=== PATIENT | female | born 1970 | race Caucasian/White ===

== ENCOUNTER 2016-10-09 10:14 | Inpatient (IN) | payer BC ==
[~2016-10-09] VITALS: Ht 157.5 cm; Wt 89.8 kg
[~2016-10-09 10:14] MED LIST: AMBIEN10 MG; AMBIEN10 MG PO; AMLODIPINE BESYL5 MG PO; Ambien PO; CITALOPRAM HBR40 MG PO; LISINOPRIL40 MG PO; LOPRESSOR25 MG PO; METOPROLOL TART50 MG PO; NEXIUM40 MG PO; Norvasc PO; Toprol XL PO; ZEGERID40 MG; Zestril,Prinivil PO; celeXA PO
[2016-10-09 10:52] LABS: HEMATOCRIT 31.7 % (36.0-46.0); MCV 75.8 FL (83-99)
[2016-10-09 15:37] LABS: CHLORIDE 105 mEq/L (99-109); POTASSIUM 3.6 mEq/L (3.7-5.4); SODIUM 139 mEq/L (136-147)
[2016-10-09 15:39] LABS: GLUCOSE 89 mg/dL (70-99)
[2016-10-09 15:41] LABS: ANION GAP 11 MEQ/L (2-14); TOTAL BILIRUBIN 0.6 mg/dL (0.0-1.0)
[2016-10-09 15:43] LABS: ALKALINE PHOSPHATASE 76 IU/L (3-129); GFR ESTIMATE (CALCULATED) > 59 mL/min/
[2016-10-09 15:44] LABS: UREA NITROGEN (BUN) 11 mg/dL (9-23)
[2016-10-09 15:47] LABS: LIPASE 6 U/L (1.0-51.0)
[2016-10-09] MEDS ORDERED: TYLENOL EXTRA500 MG PO (16:11)
[2016-10-09 16:14] LABS: ADD MIUA? NO; BILIRUBIN NEGATIVE; BLOOD NEGATIVE; COLOR YELLOW ((YELLOW)); GLUCOSE (STRIP) NEGATIVE; KETONES NEGATIVE; LEUKOCYTES NEGATIVE; NITRITE NEGATIVE; PROTEIN (STRIP) NEGATIVE; SPECIFIC GRAVITY 1.032 (1.000-1.030); UCUL ADDED? NO; UROBILINOGEN 0.2 MG/DL (0.2-1.0)
[2016-10-09 17:49] LABS: INFLUENZA A VIRAL ANTIGEN NEGATIVE; INFLUENZA B VIRAL ANTIGEN NEGATIVE
[2016-10-10 00:05] VITALS: BP 119/63
[2016-10-10 06:58] LABS: HEMATOCRIT 27.2 % (36.0-46.0); MCH 20.8 PG (29.0-34.0); MCHC 27.6 G/DL (30.0-36.0); MCV 75.3 FL (83-99); MEAN PLAT.VOLUME 10.1 uM^3 (9.5-12.4); PLATELET COUNT 372 K/uL (156-360); RBC DIS.WIDTH-CV 19.9 % (11.8-14.6); RED BLOOD COUNT 3.61 M/uL (3.80-5.20)
[2016-10-10 07:27] LABS: WHITE BLOOD COUNT 4.9 K/uL (4.1-10.2)
[2016-10-10 07:31] LABS: ALKALINE PHOSPHATASE 55 IU/L (3-129); ANION GAP 7 MEQ/L (2-14); CHLORIDE 105 MEQ/L (99-109); DIRECT BILIRUBIN 0.1 mg/dL (0.0-0.3); GFR ESTIMATE (CALCULATED) > 59 mL/min/; GLUCOSE 83 mg/dL (70-99); POTASSIUM 3.5 MEQ/L (3.7-5.4); SAMPLE HEMOLYSIS CHECK 0; SAMPLE ICTERIC CHECK 0; SAMPLE LIPEMIA CHECK 0; SODIUM 139 MEQ/L (136-147); TOTAL BILIRUBIN 0.4 MG/DL (0.0-1.0); UREA NITROGEN (BUN) 8 mg/dL (9-23)
[2016-10-10 07:35] LABS: BASOPHIL COUNT 0.1 K/uL (0-0.1); EOSINOPHIL (%) 3.7 % (0-5); EOSINOPHIL COUNT 0.2 K/uL (0-0.3); IMMATURE GRANULOCYTE (%) 0.2 % (0.0-0.7); LYMPHOCYTE COUNT 1.9 K/uL (1.0-2.8); MONOCYTE (%) 9.4 % (3-12); MONOCYTE COUNT 0.5 K/uL (0-0.8); NEUTROPHIL (%) 47.7 % (45-76); NEUTROPHIL COUNT 2.3 K/uL (1.8-6.4)
[2016-10-10 08:00] VITALS: BP 133/76
[2016-10-10 13:52] LABS: HEMATOCRIT 31.8 % (36.0-46.0); MCV 76.1 FL (83-99)
[2016-10-10 17:35] VITALS: BP 100/53
[2016-10-10 20:59] VITALS: BP 110/80
[2016-10-10 22:35] VITALS: BP 91/58
[2016-10-11 05:13] VITALS: BP 121/58
[2016-10-11 07:10] LABS: HEMATOCRIT 27.8 % (36.0-46.0); MCH 21.2 PG (29.0-34.0); MCHC 27.7 G/DL (30.0-36.0); MCV 76.6 FL (83-99); MEAN PLAT.VOLUME 10.7 uM^3 (9.5-12.4); PLATELET COUNT 352 K/uL (156-360); RBC DIS.WIDTH-SD 56.2 % (39-53); RED BLOOD COUNT 3.63 M/uL (3.80-5.20); WHITE BLOOD COUNT 5.7 K/uL (4.1-10.2)
[2016-10-11 07:23] LABS: EOSINOPHIL COUNT 0.2 K/uL (0-0.3); IMMATURE GRANULOCYTE (%) 0.2 % (0.0-0.7); LYMPHOCYTE COUNT 1.2 K/uL (1.0-2.8); MONOCYTE (%) 7.4 % (3-12); MONOCYTE COUNT 0.4 K/uL (0-0.8); NEUTROPHIL (%) 67.2 % (45-76); NEUTROPHIL COUNT 3.8 K/uL (1.8-6.4)
[2016-10-11 07:39] LABS: ALKALINE PHOSPHATASE 58 IU/L (3-129); ANION GAP 8 MEQ/L (2-14); CHLORIDE 104 MEQ/L (99-109); GFR ESTIMATE (CALCULATED) > 59 mL/min/; GLUCOSE 84 mg/dL (70-99); POTASSIUM 3.8 MEQ/L (3.7-5.4); SAMPLE HEMOLYSIS CHECK 0; SAMPLE ICTERIC CHECK 0; SAMPLE LIPEMIA CHECK 0; SODIUM 141 MEQ/L (136-147); UREA NITROGEN (BUN) 9 mg/dL (9-23)
[2016-10-11 07:41] LABS: TOTAL BILIRUBIN 0.3 MG/DL (0.0-1.0)
[2016-10-11 08:03] VITALS: BP 121/59
[2016-10-11 11:28] VITALS: BP 90/75
[2016-10-11 14:09] LABS: HEMATOCRIT 29.4 % (36.0-46.0); MCV 77.2 FL (83-99)
[2016-10-11 14:27] VITALS: BP 125/54
[2016-10-11 15:50] VITALS: BP 120/60
[2016-10-11 22:54] VITALS: BP 107/65
[2016-10-12 06:21] LABS: HEMATOCRIT 27.3 % (36.0-46.0); MCH 21.3 PG (29.0-34.0); MCHC 27.8 G/DL (30.0-36.0); MCV 76.7 FL (83-99); MEAN PLAT.VOLUME 10.2 uM^3 (9.5-12.4); PLATELET COUNT 328 K/uL (156-360); RBC DIS.WIDTH-CV 20.1 % (11.8-14.6); RBC DIS.WIDTH-SD 55.6 % (39-53); RED BLOOD COUNT 3.56 M/uL (3.80-5.20); WHITE BLOOD COUNT 6.2 K/uL (4.1-10.2)
[2016-10-12 06:44] LABS: ALKALINE PHOSPHATASE 58 IU/L (3-129); ANION GAP 7 MEQ/L (2-14); CHLORIDE 104 MEQ/L (99-109); GFR ESTIMATE (CALCULATED) > 59 mL/min/; GLUCOSE 85 mg/dL (70-99); POTASSIUM 4.2 MEQ/L (3.7-5.4); SAMPLE HEMOLYSIS CHECK 0; SAMPLE ICTERIC CHECK 0; SAMPLE LIPEMIA CHECK 0; SODIUM 140 MEQ/L (136-147); TOTAL BILIRUBIN 0.3 MG/DL (0.0-1.0); UREA NITROGEN (BUN) 11 mg/dL (9-23)
[2016-10-12 06:53] LABS: EOSINOPHIL (%) 3.6 % (0-5); EOSINOPHIL COUNT 0.2 K/uL (0-0.3); IMMATURE GRANULOCYTE (%) 0.2 % (0.0-0.7); LYMPHOCYTE COUNT 1.4 K/uL (1.0-2.8); MONOCYTE (%) 7.5 % (3-12); MONOCYTE COUNT 0.5 K/uL (0-0.8); NEUTROPHIL (%) 64.6 % (45-76)
[2016-10-12 08:23] VITALS: BP 119/58
[2016-10-12 16:36] VITALS: BP 121/59
[2016-10-12 21:15] VITALS: BP 111/60
[2016-10-12 22:16] LABS: INTERNAL CONTROL VALID? YES
[2016-10-12 23:34] VITALS: BP 116/58
[2016-10-13 05:01] LABS: CHLORIDE 107 mEq/L (99-109); POTASSIUM 3.9 mEq/L (3.7-5.4); SODIUM 140 mEq/L (136-147)
[2016-10-13 05:05] LABS: ANION GAP 8 MEQ/L (2-14)
[2016-10-13 05:07] LABS: ALKALINE PHOSPHATASE 61 IU/L (3-129); GFR ESTIMATE (CALCULATED) > 59 mL/min/
[2016-10-13 05:08] LABS: UREA NITROGEN (BUN) 10 mg/dL (9-23)
[2016-10-13 05:14] LABS: GLUCOSE 112 mg/dL (70-99); TOTAL BILIRUBIN 0.3 mg/dL (0.0-1.0)
[2016-10-13 07:52] VITALS: BP 108/52
[2016-10-13 11:05] LABS: HEMATOCRIT 28.1 % (36.0-46.0); MCH 21.8 PG (29.0-34.0); MCHC 28.1 G/DL (30.0-36.0); MCV 77.4 FL (83-99); MEAN PLAT.VOLUME 10.4 uM^3 (9.5-12.4); PLATELET COUNT 343 K/uL (156-360); RBC DIS.WIDTH-CV 20.5 % (11.8-14.6); RBC DIS.WIDTH-SD 56.9 % (39-53); RED BLOOD COUNT 3.63 M/uL (3.80-5.20); WHITE BLOOD COUNT 5.7 K/uL (4.1-10.2)
[2016-10-13 11:08] LABS: BASOPHIL COUNT 0.1 K/uL (0-0.1); EOSINOPHIL (%) 4.9 % (0-5); EOSINOPHIL COUNT 0.3 K/uL (0-0.3); IMMATURE GRANULOCYTE (%) 0.4 % (0.0-0.7); LYMPHOCYTE COUNT 1.3 K/uL (1.0-2.8); MONOCYTE (%) 9.3 % (3-12); MONOCYTE COUNT 0.5 K/uL (0-0.8); NEUTROPHIL (%) 62.4 % (45-76); NEUTROPHIL COUNT 3.6 K/uL (1.8-6.4)
[2016-10-13 15:17] VITALS: BP 116/64
[2016-10-13 20:22] VITALS: BP 117/79
[2016-10-13 23:03] VITALS: BP 124/69
[2016-10-13 23:20] VITALS: BP 119/64
[2016-10-13 23:36] LABS: HAPTOGLOBIN+ 132 mg/dL (43-212)
[2016-10-14] VITALS (8 sets, daily range): BP systolic 108–140; BP diastolic 53–78
[2016-10-14 06:38] LABS: MCH 23.3 PG (29.0-34.0); MCHC 29.1 G/DL (30.0-36.0); MCV 80.2 FL (83-99); MEAN PLAT.VOLUME 10.5 uM^3 (9.5-12.4); PLATELET COUNT 304 K/uL (156-360); RBC DIS.WIDTH-CV 20.6 % (11.8-14.6); RBC DIS.WIDTH-SD 59.9 % (39-53); RED BLOOD COUNT 3.99 M/uL (3.80-5.20); WHITE BLOOD COUNT 4.7 K/uL (4.1-10.2)
[2016-10-14 06:53] LABS: BASOPHIL COUNT 0.1 K/uL (0-0.1); EOSINOPHIL (%) 4.9 % (0-5); EOSINOPHIL COUNT 0.2 K/uL (0-0.3); LYMPHOCYTE COUNT 1.5 K/uL (1.0-2.8); MONOCYTE (%) 9.7 % (3-12); MONOCYTE COUNT 0.5 K/uL (0-0.8); NEUTROPHIL (%) 51.7 % (45-76); NEUTROPHIL COUNT 2.4 K/uL (1.8-6.4)
[2016-10-14 07:02] LABS: ANION GAP 4 MEQ/L (2-14); CHLORIDE 105 MEQ/L (99-109); GFR ESTIMATE (CALCULATED) > 59 mL/min/; GLUCOSE 85 mg/dL (70-99); POTASSIUM 4.1 MEQ/L (3.7-5.4); SAMPLE HEMOLYSIS CHECK 0; SAMPLE ICTERIC CHECK 0; SAMPLE LIPEMIA CHECK 0; SODIUM 138 MEQ/L (136-147); UREA NITROGEN (BUN) 11 mg/dL (9-23)
[2016-10-14] MEDS ORDERED: AMITRIPTYLINE H10 MG PO (07:15)
[2016-10-14] MEDS ORDERED: ENDOCET 5-3251 EACH PO (07:15)
[2016-10-14 13:51] LABS: INTERNAL CONTROL VALID? YES
[2016-10-16 20:53] LABS: Neutrophil Cytoplasmic Aby Negative (Negative)
== END 2016-10-14 09:55 | disposition home or self-care (01) | DRG 195 ==
LOC: EME 10:14 → AMB 10:14 → EDSTATUS 10:30 → EDOF 15:53 → 5EAST 15:53
PROVIDERS: Emergency Medicine; Internal Medicine Gastroenterology; Internal Medicine Pulmonary Disease; Nurse Practitioner Adult Health; Pediatrics
PROC: 30233N1 Transfusion of Nonautologous Red Blood Cells into Peripheral Vein, Percutaneous Approach (ICD-10-PCS; principal; 2016-10-13)
DX: J18.1 Lobar pneumonia, unspecified organism (principal); D50.9 Iron deficiency anemia, unspecified; R51 Headache; R10.11 Right upper quadrant pain; R04.0 Epistaxis; D73.4 Cyst of spleen; I10 Essential (primary) hypertension; K21.9 Gastro-esophageal reflux disease without esophagitis; K44.9 Diaphragmatic hernia without obstruction or gangrene; F41.9 Anxiety disorder, unspecified; F32.9 Major depressive disorder, single episode, unspecified; G47.00 Insomnia, unspecified; R09.02 Hypoxemia; E53.8 Deficiency of other specified B group vitamins; E66.9 Obesity, unspecified; Z68.37 Body mass index [BMI] 37.0-37.9, adult
CPT/HCPCS: 70450; 71020; 80048; 80053; 80076; 81003; 82272; 83010 90; 83516 90; 83605; 83690; 85014; 85018; 85025; 86021 90; 86038; 86850; 86900; 86901; 86920; 87040; 87502; 94760; 99202; 99281; 99285; C9113; J0456; J0696; J7050; P9016

== ENCOUNTER 2016-11-08 17:28 | Emergency (ER) | payer BC ==
[~2016-11-08] VITALS: Ht 157.5 cm; Wt 91.5 kg
[~2016-11-08 17:28] MED LIST changes: +AMITRIPTYLINE H10 MG PO; +ENDOCET 5-3251 EACH PO; +TYLENOL EXTRA500 MG PO
[2016-11-08 18:55] LABS: EOSINOPHIL (%) 4.8 % (0-5); EOSINOPHIL COUNT 0.3 K/uL (0-0.3); HEMATOCRIT 34.1 % (36.0-46.0); IMMATURE GRANULOCYTE (%) 0.6 % (0.0-0.7); IMMATURE GRANULOCYTE COUNT 0.4 K/uL; LYMPHOCYTE COUNT 2.1 K/uL (1.0-2.8); MCH 24.8 PG (29.0-34.0); MCHC 29.9 G/DL (30.0-36.0); MEAN PLAT.VOLUME 10.7 uM^3 (9.5-12.4); MONOCYTE (%) 5.7 % (3-12); MONOCYTE COUNT 0.4 K/uL (0-0.8); NEUTROPHIL COUNT 3.7 K/uL (1.8-6.4); RBC DIS.WIDTH-CV 20.8 % (11.8-14.6); RBC DIS.WIDTH-SD 62.5 % (39-53); RED BLOOD COUNT 4.11 M/uL (3.80-5.20); WHITE BLOOD COUNT 6.5 K/uL (4.1-10.2)
[2016-11-08 19:03] LABS: CHLORIDE 107 mEq/L (99-109); SODIUM 140 mEq/L (136-147)
[2016-11-08 19:04] LABS: GLUCOSE 103 mg/dL (70-99)
[2016-11-08 19:06] LABS: ANION GAP 9 MEQ/L (2-14)
[2016-11-08 19:08] LABS: GFR ESTIMATE (CALCULATED) 51 mL/min/
[2016-11-08 19:09] LABS: UREA NITROGEN (BUN) 18 mg/dL (9-23)
[2016-11-08 19:19] LABS: PLATELET COUNT 262 K/uL (156-360)
[2016-11-08] MEDS ORDERED: LEVAQUIN500 MG PO (20:51)
[2016-11-08 21:05] VITALS: BP 117/80
[2016-11-13] MEDS ORDERED: IMITREX50 MG PO (13:49)
== END 2016-11-08 21:06 | disposition home or self-care (01) ==
LOC: EME 17:28
PROVIDERS: Emergency Medicine
DX: J18.9 Pneumonia, unspecified organism (principal)
CPT/HCPCS: 80048; 85025; 86850; 86900; 86901; 87040; 99281; 99285; J7040

== ENCOUNTER → 2016-12-02 | Outpatient (CLI) | payer BC ==
[~2016-12-02] VITALS: Ht 157.5 cm; Wt 88.5 kg
[~2016-12-02] MED LIST changes: +IMITREX50 MG PO; +LEVAQUIN500 MG PO; +VERAPAMIL HCL180 MG PO
[2016-12-02 09:36] LABS: BASOPHIL COUNT 0.1 K/uL (0-0.1); EOSINOPHIL (%) 4.5 % (0-5); EOSINOPHIL COUNT 0.2 K/uL (0-0.3); HEMATOCRIT 37.1 % (36.0-46.0); IMMATURE GRANULOCYTE (%) 0.2 % (0.0-0.7); LYMPHOCYTE COUNT 2.3 K/uL (1.0-2.8); MCH 25.1 PG (29.0-34.0); MCHC 29.4 G/DL (30.0-36.0); MCV 85.3 FL (83-99); MONOCYTE (%) 5.9 % (3-12); MONOCYTE COUNT 0.3 K/uL (0-0.8); NEUTROPHIL (%) 41.7 % (45-76); RBC DIS.WIDTH-CV 19.4 % (11.8-14.6); RBC DIS.WIDTH-SD 60.7 % (39-53); RED BLOOD COUNT 4.35 M/uL (3.80-5.20); WHITE BLOOD COUNT 4.9 K/uL (4.1-10.2)
[2016-12-02 09:50] LABS: INTER. NORMALIZED RATIO 1.1; PROTHROMBIN TIME 11.3 (9.2-11.2); PTT 28.4 (25-32)
[2016-12-02 10:12] LABS: PLATELET COUNT 397 K/uL (156-360)
[2016-12-02 12:11] LABS: ABS NEUTROPHIL COUNT 2.2; ANISOCYTOSIS 2+; ATYPICAL LYMPHOCYTE 8.8 %; BASOPHILS 0.9 %; EOSINOPHIL ABS CT 0.2; EOSINOPHILS 4.4 % (0-5.0); HYPOCHROMASIA 2+; LYMPHOCYTES 33.3 % (15.0-45.0); MACROCYTES 1+; MICROCYTOSIS 1+; PLAT.SUFFICIENCY INCREASED; SEG.NEUTROPHILS 45.6 % (46.0-76.0); SPHEROCYTES 1+
[2016-12-04 10:44] LABS: Flow Number of Markers 22 (()); Flow Spec Viability 91 % (()); Flow Specimen Type BONE MARROW (())
== END | disposition home or self-care (01) ==
LOC: OPR 08:53 → EDSTATUS 09:00
PROVIDERS: Internal Medicine Hematology & Oncology
PROC: 07DR3ZX Extraction of Iliac Bone Marrow, Percutaneous Approach, Diagnostic (ICD-10-PCS; principal; 2016-12-02)
DX: D50.8 Other iron deficiency anemias (principal); R63.4 Abnormal weight loss; R61 Generalized hyperhidrosis; R50.9 Fever, unspecified; R53.83 Other fatigue; R10.11 Right upper quadrant pain; E78.5 Hyperlipidemia, unspecified; K21.9 Gastro-esophageal reflux disease without esophagitis; I10 Essential (primary) hypertension; E66.9 Obesity, unspecified; Z68.37 Body mass index [BMI] 37.0-37.9, adult; Z83.3 Family history of diabetes mellitus; Z82.49 Family history of ischemic heart disease and other diseases of the circulatory system; Z88.5 Allergy status to narcotic agent; Z88.8 Allergy status to other drugs, medicaments and biological substances
CPT/HCPCS: 77012; 85007; 85025; 85610; 85730; 85999; 88184 90; 88185 90; 88189 90; J3010

== ENCOUNTER 2017-03-07 21:34 | Inpatient (IN) | payer BC ==
[~2017-03-07] VITALS: Ht 160 cm; Wt 95.2 kg
[2017-03-07 21:55] LABS: BASE EXCESS 0.5 mEq/L (-3 to +3); CARBOXY HGB 2.8 % (0-5); COMMENTS - BLOOD GASES C+A+; DEVICE NC; O2 FLOW 6 L/MIN; PCO2 45 mm Hg (35-45); PO2 46 mm Hg (80-100); SITE RB; TOTAL RESP RATE 20 resp/min; pH 7.37 (7.35-7.45)
[2017-03-07 22:12] LABS: HEMATOCRIT 30.1 % (36.0-46.0); MCHC 30.2 G/DL (30.0-36.0); MCV 89.3 FL (83-99); MEAN PLAT.VOLUME 9.7 uM^3 (9.5-12.4); PLATELET COUNT 170 K/uL (156-360); RBC DIS.WIDTH-SD 45.5 % (39-53); RED BLOOD COUNT 3.37 M/uL (3.80-5.20)
[2017-03-07 22:24] LABS: CHLORIDE 103 mEq/L (99-109); POTASSIUM 4.3 mEq/L (3.7-5.4); SODIUM 136 mEq/L (136-147)
[2017-03-07 22:26] LABS: GLUCOSE 116 mg/dL (70-99)
[2017-03-07 22:28] LABS: ANION GAP 8 MEQ/L (2-14); TOTAL BILIRUBIN 0.5 mg/dL (0.0-1.0)
[2017-03-07 22:31] LABS: ALKALINE PHOSPHATASE 77 IU/L (3-129); GFR ESTIMATE (CALCULATED) > 59 mL/min/; UREA NITROGEN (BUN) 12 mg/dL (9-23)
[2017-03-07 22:32] LABS: DIRECT BILIRUBIN 0.2 mg/dL (0.0-0.3)
[2017-03-07 22:37] LABS: TROP-I INTERPRETATION NEGATIVE; TROPONIN-I 0.04 ng/mL (0.0-0.30)
[2017-03-07] MEDS ORDERED: IMITREX50 MG PO (22:42)
[2017-03-07 23:00] LABS: LIPASE < 1 U/L (1.0-51.0)
[2017-03-08 01:50] LABS: HEMATOCRIT 28.9 % (36.0-46.0); MCH 27.2 PG (29.0-34.0); MCHC 30.8 G/DL (30.0-36.0); MCV 88.4 FL (83-99); MEAN PLAT.VOLUME 10.2 uM^3 (9.5-12.4); PLATELET COUNT 177 K/uL (156-360); RBC DIS.WIDTH-CV 14.1 % (11.8-14.6); RBC DIS.WIDTH-SD 45.7 % (39-53); RED BLOOD COUNT 3.27 M/uL (3.80-5.20); WHITE BLOOD COUNT 11.7 K/uL (4.1-10.2)
[2017-03-08 04:21] LABS: EOSINOPHIL (%) 0 % (0-5); HEMATOCRIT 29.8 % (36.0-46.0); IMMATURE GRANULOCYTE COUNT 0.1 K/uL; INSTRUMENT ABS NEUTROPHIL CT 10.3 K/uL; LYMPHOCYTE COUNT 0.4 K/uL (1.0-2.8); MCH 27.3 PG (29.0-34.0); MCHC 30.9 G/DL (30.0-36.0); MCV 88.4 FL (83-99); MEAN PLAT.VOLUME 10.2 uM^3 (9.5-12.4); MONOCYTE (%) 1.2 % (3-12); MONOCYTE COUNT 0.1 K/uL (0-0.8); NEUTROPHIL (%) 94.3 % (45-76); NEUTROPHIL COUNT 10.3 K/uL (1.8-6.4); PLATELET COUNT 174 K/uL (156-360); RBC DIS.WIDTH-CV 14.1 % (11.8-14.6); RBC DIS.WIDTH-SD 45.1 % (39-53); RED BLOOD COUNT 3.37 M/uL (3.80-5.20)
[2017-03-08 04:32] LABS: CHLORIDE 105 mEq/L (99-109); POTASSIUM 4.2 mEq/L (3.7-5.4); SODIUM 137 mEq/L (136-147)
[2017-03-08 04:34] LABS: GLUCOSE 166 mg/dL (70-99)
[2017-03-08 04:36] LABS: ANION GAP 9 MEQ/L (2-14)
[2017-03-08 04:38] LABS: GFR ESTIMATE (CALCULATED) > 59 mL/min/
[2017-03-08 04:39] LABS: UREA NITROGEN (BUN) 10 mg/dL (9-23)
[2017-03-08 04:46] VITALS: BP 111/87
[2017-03-08 05:48] LABS: IMMUNOGLOBULIN A 278 MG/DL (40-350); IMMUNOGLOBULIN G 991 MG/DL (650-1600); IMMUNOGLOBULIN M 152 MG/DL (50-300)
[2017-03-08 06:03] LABS: TROP-I INTERPRETATION NEGATIVE; TROPONIN-I 0.05 ng/mL (0.0-0.30)
[2017-03-08 07:10] LABS: ABS NEUTROPHIL COUNT 11.2; BAND NEUTROPHILS 0.9 % (0-8.0); EOSINOPHIL ABS CT 0; INSTRUMENT ABS NEUTROPHIL CT 10.9 K/uL; LYMPHOCYTES 2.6 % (15.0-45.0); PLAT.SUFFICIENCY ADEQUATE; SEG.NEUTROPHILS 94.8 % (46.0-76.0); SMEAR EVALUATION YES
[2017-03-08 08:00] VITALS: BP 117/88
[2017-03-08 11:46] VITALS: BP 132/64
[2017-03-08 12:27] LABS: LYME DISEASE SEROLOGY SCREEN NEGATIVE (NEGATIVE)
[2017-03-08 12:57] LABS: TROP-I INTERPRETATION NEGATIVE; TROPONIN-I 0.04 ng/mL (0.0-0.30)
[2017-03-08 16:34] VITALS: BP 128/82
[2017-03-08 20:17] VITALS: BP 132/89
[2017-03-09 00:44] VITALS: BP 109/56
[2017-03-09 05:27] VITALS: BP 117/57
[2017-03-09 08:30] LABS: HIV INDEX 0.15; HIV-1/2 AB/AG COMBO Nonreactive
[2017-03-09 10:10] LABS: INTERNAL CONTROL VALID? YES
[2017-03-09 11:58] VITALS: BP 119/60
[2017-03-09 16:00] VITALS: BP 129/55
[2017-03-09 20:18] VITALS: BP 117/58
[2017-03-10] VITALS (7 sets, daily range): BP systolic 110–148; BP diastolic 58–88
[2017-03-10 06:05] LABS: HEMATOCRIT 25.2 % (36.0-46.0); MCHC 30.2 G/DL (30.0-36.0); MCV 89.4 FL (83-99); MEAN PLAT.VOLUME 10.5 uM^3 (9.5-12.4); PLATELET COUNT 183 K/uL (156-360); RBC DIS.WIDTH-CV 14.5 % (11.8-14.6); RBC DIS.WIDTH-SD 46.5 % (39-53); RED BLOOD COUNT 2.82 M/uL (3.80-5.20); WHITE BLOOD COUNT 7.6 K/uL (4.1-10.2)
[2017-03-10 06:16] LABS: ANION GAP 7 MEQ/L (2-14); CHLORIDE 107 MEQ/L (99-109); GFR ESTIMATE (CALCULATED) > 59 mL/min/; POTASSIUM 3.5 MEQ/L (3.7-5.4); SAMPLE HEMOLYSIS CHECK 0; SAMPLE ICTERIC CHECK 0; SAMPLE LIPEMIA CHECK 0; SODIUM 140 MEQ/L (136-147); UREA NITROGEN (BUN) 9 mg/dL (9-23)
[2017-03-10 06:40] LABS: GLUCOSE 95 mg/dL (70-99)
[2017-03-10 10:38] LABS: ANTI-NUCLEAR AB SCRN/RFLX(ANA) NONREACTIVE (NONREACTIVE)
[2017-03-10 11:09] LABS: INFLUENZA A VIRAL ANTIGEN NEGATIVE; INFLUENZA B VIRAL ANTIGEN NEGATIVE
[2017-03-10 17:36] LABS: MCV 90.9 FL (83-99)
[2017-03-11 03:47] VITALS: BP 125/70
[2017-03-11 04:52] LABS: DRVVT Mixing Study Interp Not Indicated (()); dRVVT Screen 39 sec (<=45)
[2017-03-11 05:22] LABS: ADD PTT REFLEX? Y; PTT-LA 46 sec (<=40); PTT-LA Reflex Has been added (())
[2017-03-11 09:06] VITALS: BP 128/58
[2017-03-11 11:59] VITALS: BP 136/77
[2017-03-11 15:18] VITALS: BP 134/66
[2017-03-11 17:46] LABS: HGBE Erythrocyte Cnt 3.42 Mill/uL (3.80-5.10); HGBE Hematocrit 30.6 % (35.0-45.0); HGBE Hemoglobin 9.4 g/dL (11.7-15.5); HGBE MCH 27.5 pg (27.0-33.0); HGBE MCV 89.5 FL (80.0-100.0); HGBE RDW 16.2 % (11.0-15.0)
[2017-03-11 19:35] VITALS: BP 134/78
[2017-03-11 21:50] LABS: QGTB-NIL 0.05 IU/mL (()); TB AG-NIL 0.01 IU/mL (())
[2017-03-11 23:39] VITALS: BP 109/56
[2017-03-12 02:16] LABS: INTRINSIC FACTOR BLOCKING ABY+ Negative (Negative)
[2017-03-12 03:23] VITALS: BP 122/71
[2017-03-12 06:03] LABS: EOSINOPHIL (%) 3.7 % (0-5); EOSINOPHIL COUNT 0.3 K/uL (0-0.3); IMMATURE GRANULOCYTE (%) 0.7 % (0.0-0.7); IMMATURE GRANULOCYTE COUNT 0.1 K/uL; INSTRUMENT ABS NEUTROPHIL CT 6.4 K/uL; LYMPHOCYTE COUNT 1.3 K/uL (1.0-2.8); MCH 27.4 PG (29.0-34.0); MCHC 31.1 G/DL (30.0-36.0); MCV 88.1 FL (83-99); MONOCYTE (%) 6.4 % (3-12); MONOCYTE COUNT 0.6 K/uL (0-0.8); NEUTROPHIL (%) 73.9 % (45-76); NEUTROPHIL COUNT 6.4 K/uL (1.8-6.4); RBC DIS.WIDTH-CV 14.8 % (11.8-14.6); RBC DIS.WIDTH-SD 46.2 % (39-53); RED BLOOD COUNT 3.18 M/uL (3.80-5.20); WHITE BLOOD COUNT 8.6 K/uL (4.1-10.2)
[2017-03-12 06:26] LABS: ALKALINE PHOSPHATASE 60 IU/L (3-129); ANION GAP 8 MEQ/L (2-14); CHLORIDE 103 MEQ/L (99-109); GFR ESTIMATE (CALCULATED) > 59 mL/min/; GLUCOSE 90 mg/dL (70-99); POTASSIUM 3.3 MEQ/L (3.7-5.4); SAMPLE HEMOLYSIS CHECK 0; SAMPLE ICTERIC CHECK 0; SAMPLE LIPEMIA CHECK 0; SODIUM 140 MEQ/L (136-147); TOTAL BILIRUBIN 0.5 MG/DL (0.0-1.0); UREA NITROGEN (BUN) 5 mg/dL (9-23)
[2017-03-12 07:19] LABS: MEAN PLAT.VOLUME 11.7 uM^3 (9.5-12.4); PLAT.SUFFICIENCY ADEQUATE; PLATELET COUNT 182 K/uL (156-360)
[2017-03-12 08:20] VITALS: BP 146/92
[2017-03-12 11:33] VITALS: BP 156/71
[2017-03-12 15:22] VITALS: BP 133/80
[2017-03-12 20:40] VITALS: BP 174/86
[2017-03-12 23:42] VITALS: BP 132/60
[2017-03-13 04:06] VITALS: BP 145/65
[2017-03-13 06:22] LABS: EOSINOPHIL (%) 3.8 % (0-5); EOSINOPHIL COUNT 0.3 K/uL (0-0.3); HEMATOCRIT 25.8 % (36.0-46.0); IMMATURE GRANULOCYTE (%) 0.8 % (0.0-0.7); IMMATURE GRANULOCYTE COUNT 0.1 K/uL; INSTRUMENT ABS NEUTROPHIL CT 5.4 K/uL; LYMPHOCYTE COUNT 1.5 K/uL (1.0-2.8); MCH 27.6 PG (29.0-34.0); MCHC 31.4 G/DL (30.0-36.0); MCV 88.1 FL (83-99); MEAN PLAT.VOLUME 10.6 uM^3 (9.5-12.4); MONOCYTE (%) 6.9 % (3-12); MONOCYTE COUNT 0.5 K/uL (0-0.8); NEUTROPHIL (%) 68.8 % (45-76); NEUTROPHIL COUNT 5.4 K/uL (1.8-6.4); RBC DIS.WIDTH-CV 15.2 % (11.8-14.6); RBC DIS.WIDTH-SD 46.9 % (39-53); RED BLOOD COUNT 2.93 M/uL (3.80-5.20); WHITE BLOOD COUNT 7.8 K/uL (4.1-10.2)
[2017-03-13 06:30] LABS: ALKALINE PHOSPHATASE 59 IU/L (3-129); ANION GAP 6 MEQ/L (2-14); CHLORIDE 103 MEQ/L (99-109); GFR ESTIMATE (CALCULATED) > 59 mL/min/; GLUCOSE 87 mg/dL (70-99); POTASSIUM 3.4 MEQ/L (3.7-5.4); SAMPLE HEMOLYSIS CHECK 0; SAMPLE ICTERIC CHECK 0; SAMPLE LIPEMIA CHECK 0; SODIUM 140 MEQ/L (136-147); TOTAL BILIRUBIN 0.4 MG/DL (0.0-1.0); UREA NITROGEN (BUN) 4 mg/dL (9-23)
[2017-03-13 06:35] LABS: PLATELET COUNT 261 K/uL (156-360)
[2017-03-13 07:36] VITALS: BP 142/69
[2017-03-13] MEDS ORDERED: AUGMENTIN875 MG PO (10:11)
[2017-03-13] MEDS ORDERED: ZITHROMAX500 MG PO (10:11)
[2017-03-13 10:57] VITALS: BP 133/83
[2017-03-16 20:33] LABS: Neutrophil Cytoplasmic Aby Negative (Negative)
== END 2017-03-13 13:33 | disposition home or self-care (01) | DRG 166 ==
LOC: EME → EDBD 21:34 → EME 21:34 → 4EAST 03-08 03:23 → EDOF 03-08 03:23 → 4EAST 03-08 04:31
PROVIDERS: Emergency Medicine; Hospitalist; Internal Medicine; Nurse Practitioner Adult Health; Pediatrics
PROC: 0B9D8ZX Drainage of Right Middle Lung Lobe, Via Natural or Artificial Opening Endoscopic, Diagnostic (ICD-10-PCS; principal; 2017-03-08)
PROC: 0B9F8ZX Drainage of Right Lower Lung Lobe, Via Natural or Artificial Opening Endoscopic, Diagnostic (ICD-10-PCS; principal; 2017-03-08)
DX: J18.9 Pneumonia, unspecified organism (principal); K44.9 Diaphragmatic hernia without obstruction or gangrene; K21.9 Gastro-esophageal reflux disease without esophagitis; I10 Essential (primary) hypertension; F32.9 Major depressive disorder, single episode, unspecified; R41.82 Altered mental status, unspecified; D18.1 Lymphangioma, any site; E66.9 Obesity, unspecified; F41.9 Anxiety disorder, unspecified; D50.9 Iron deficiency anemia, unspecified; J96.01 Acute respiratory failure with hypoxia; J98.11 Atelectasis; E87.6 Hypokalemia; D18.00 Hemangioma unspecified site; Z68.37 Body mass index [BMI] 37.0-37.9, adult; Z87.01 Personal history of pneumonia (recurrent)
CPT/HCPCS: 36600; 71010; 71020; 71275; 80048; 80053; 80076; 80202; 82272; 82784 90; 82803; 83021 90; 83605; 83690; 83880; 84484; 85007; 85014; 85018; 85025; 85025 91; 85027; 85060; 85597 90; 85613 90; 85730 90; 86021 90; 86038; 86147 90; 86340 90; 86480 90; 86618; 86638 90; 86703; 86900; 86901; 87040; 87070; 87116; 87205; 87206; 87278; 87449; 87502; 87651 90; 88108; 88312; 92610 GN; 93005; 93306; 94667; 94668; 94760; 94799; 99202; 99281; 99285; G0480; J1100; J1650; J2250; J2405; J2543; J3010; J3370; J3475; J7050

== ENCOUNTER → 2017-05-14 | Outpatient (CLI) | payer BC ==
[~2017-05-14] MED LIST changes: +AUGMENTIN875 MG PO; +KLONOPIN0.5 M1 PO; +ZITHROMAX500 MG PO
[2017-05-14 10:12] LABS: HEMATOCRIT 34.9 % (36.0-46.0); MCH 25.2 PG (29.0-34.0); MCHC 30.7 G/DL (30.0-36.0); MCV 82.3 FL (83-99); MEAN PLAT.VOLUME 9.9 uM^3 (9.5-12.4); PLATELET COUNT 484 K/uL (156-360); RBC DIS.WIDTH-SD 45.6 % (39-53); RED BLOOD COUNT 4.24 M/uL (3.80-5.20)
[2017-05-14 10:35] LABS: ANION GAP 10 MEQ/L (2-14); CHLORIDE 104 MEQ/L (99-109); GFR ESTIMATE (CALCULATED) > 59 mL/min/; GLUCOSE 92 mg/dL (70-99); POTASSIUM 4.1 MEQ/L (3.7-5.4); SAMPLE HEMOLYSIS CHECK 0; SAMPLE ICTERIC CHECK 0; SAMPLE LIPEMIA CHECK 0; SODIUM 139 MEQ/L (136-147); UREA NITROGEN (BUN) 12 mg/dL (9-23)
== END | disposition home or self-care (01) ==
LOC: AMB 09:00
PROVIDERS: Internal Medicine Gastroenterology
DX: K31.7 Polyp of stomach and duodenum (principal); K21.9 Gastro-esophageal reflux disease without esophagitis; F41.8 Other specified anxiety disorders; D50.8 Other iron deficiency anemias; I10 Essential (primary) hypertension; K44.9 Diaphragmatic hernia without obstruction or gangrene; E66.9 Obesity, unspecified; Z68.39 Body mass index [BMI] 39.0-39.9, adult; Z83.3 Family history of diabetes mellitus; Z82.49 Family history of ischemic heart disease and other diseases of the circulatory system; Z87.01 Personal history of pneumonia (recurrent)
CPT/HCPCS: 71010; 80048; 85027; 88305; 88342 TC; J2250; J3010

== ENCOUNTER 2017-06-03 05:55 | Day surgery (SDC) | payer BC ==
[~2017-06-03] VITALS: Ht 157.5 cm; Wt 101.9 kg
[2017-06-03 06:35] VITALS: BP 147/79
[2017-06-03 07:07] LABS: ADD MIUA? NO; BILIRUBIN NEGATIVE; BLOOD NEGATIVE; COLOR YELLOW ((YELLOW)); GLUCOSE (STRIP) NEGATIVE; KETONES NEGATIVE; LEUKOCYTES NEGATIVE; NITRITE NEGATIVE; PROTEIN (STRIP) NEGATIVE; SPECIFIC GRAVITY 1.014 (1.000-1.030); UROBILINOGEN 0.2 MG/DL (0.2-1.0)
[2017-06-03 15:59] VITALS: BP 137/82
[2017-06-03 19:39] VITALS: BP 168/88
[2017-06-03 23:36] VITALS: BP 131/65
[2017-06-04 03:34] VITALS: BP 135/60
[2017-06-04 07:15] VITALS: BP 123/96
[2017-06-04 11:05] VITALS: BP 134/68
[2017-06-04 12:19] LABS: HEMATOCRIT 28.2 % (36.0-46.0); MCH 24.8 PG (29.0-34.0); MCHC 30.1 G/DL (30.0-36.0); MCV 82.2 FL (83-99); MEAN PLAT.VOLUME 10.4 uM^3 (9.5-12.4); RBC DIS.WIDTH-CV 14.8 % (11.8-14.6); RED BLOOD COUNT 3.43 M/uL (3.80-5.20); WHITE BLOOD COUNT 8.9 K/uL (4.1-10.2)
[2017-06-04 12:20] LABS: PLATELET COUNT 317 K/uL (156-360)
[2017-06-04 12:24] LABS: CHLORIDE 105 mEq/L (99-109); POTASSIUM 4.4 mEq/L (3.7-5.4); SODIUM 141 mEq/L (136-147)
[2017-06-04 12:26] LABS: GLUCOSE 85 mg/dL (70-99)
[2017-06-04 12:27] LABS: ANION GAP 12 MEQ/L (2-14)
[2017-06-04 12:28] LABS: TOTAL BILIRUBIN 0.3 mg/dL (0.0-1.0)
[2017-06-04 12:29] LABS: ALKALINE PHOSPHATASE 72 IU/L (3-129)
[2017-06-04 12:30] LABS: GFR ESTIMATE (CALCULATED) > 59 mL/min/
[2017-06-04 12:31] LABS: UREA NITROGEN (BUN) 11 mg/dL (9-23)
[2017-06-04] MEDS ORDERED: Lortab,Vicodin Elixi PO (14:11)
[2017-06-04] MEDS ORDERED: VERAPAMIL HCL120 MG PO (14:11)
== END 2017-06-04 15:25 | disposition home or self-care (01) ==
LOC: SDC 05:55 → 2SOUTH 12:18 → 5EAST 12:18 → ENRESERV 12:21 → SDC 14:43 → 5EAST 15:15 → SDC 16:09 → 5EAST 06-04 15:25
PROVIDERS: Physician Assistant Surgical; Surgery
DX: K44.9 Diaphragmatic hernia without obstruction or gangrene (principal); K21.9 Gastro-esophageal reflux disease without esophagitis; I10 Essential (primary) hypertension; E66.9 Obesity, unspecified; Z68.38 Body mass index [BMI] 38.0-38.9, adult; D50.8 Other iron deficiency anemias; E55.9 Vitamin D deficiency, unspecified; F41.8 Other specified anxiety disorders; E78.5 Hyperlipidemia, unspecified
CPT/HCPCS: 80053; 81003; 85027; 86850; 86900; 86901; 88302; 94799; C9113; G0378; J0330; J1100; J1170; J1650; J2405; J2710; J3010; J7120

== ENCOUNTER 2018-01-09 10:13 | Emergency (ER) | payer BC ==
[~2018-01-09] VITALS: Ht 157.5 cm; Wt 102.5 kg
[~2018-01-09 10:13] MED LIST changes: +Lortab,Vicodin Elixi PO; +VERAPAMIL HCL120 MG PO
[2018-01-09 11:27] LABS: HEMATOCRIT 37.2 % (36.0-46.0); HEMOGLOBIN 11.4 G/DL (11.9-15.5); MCH 25.9 PG (29.0-34.0); MCHC 30.6 G/DL (30.0-36.0); MCV 84.5 FL (83-99); PLATELET COUNT 374 K/uL (156-360); RBC DIS.WIDTH-CV 15.1 % (11.8-14.6); RBC DIS.WIDTH-SD 46.4 % (39-53); WHITE BLOOD COUNT 13.4 K/uL (4.1-10.2)
[2018-01-09 11:41] LABS: ALBUMIN 4.2 g/dL (3.2-4.8)
[2018-01-09 11:42] LABS: CHLORIDE 107 mEq/L (99-109); POTASSIUM 4.5 mEq/L (3.7-5.4); SODIUM 139 mEq/L (136-147)
[2018-01-09 11:44] LABS: GLUCOSE 86 mg/dL (70-99); TOTAL PROTEIN 7.8 g/dL (6.4-8.3)
[2018-01-09 11:46] LABS: TOTAL BILIRUBIN 0.3 mg/dL (0.0-1.0)
[2018-01-09 11:47] LABS: ALKALINE PHOSPHATASE 92 IU/L (3-129)
[2018-01-09 11:48] LABS: CREATININE 1.8 mg/dL (0.6-1.3); GFR ESTIMATE (CALCULATED) 32 mL/min/
[2018-01-09 11:49] LABS: AST (GOT) 20 IU/L (2-34); UREA NITROGEN (BUN) 26 mg/dL (9-23)
[2018-01-09 11:50] LABS: APPEARANCE CLOUDY ((CLEAR)); BILIRUBIN SMALL; BLOOD NEGATIVE; COLOR AMBER ((YELLOW)); GLUCOSE (STRIP) NEGATIVE; KETONES NEGATIVE; LEUKOCYTES NEGATIVE; NITRITE NEGATIVE; PROTEIN (STRIP) 30; SPECIFIC GRAVITY 1.029 (1.000-1.030)
[2018-01-09 11:51] LABS: ALT (GPT) 9 IU/L (3-49)
[2018-01-09 12:23] LABS: BACTERIA 1+ /HPF; EPITHELIAL CELLS 2+ /HPF; MUCUS NONE SEEN /LPF; RED BLOOD CELLS 0-5 /HPF (0-5); UCUL ADDED? NO; WHITE BLOOD CELLS 0-5 /HPF (0-5)
[2018-01-09 12:24] LABS: CALCIUM OXALATE CRYSTALS 2+ /HPF
[2018-01-09] MEDS ORDERED: PERCOCET 10/1 TABLET PO (12:39)
[2018-01-09 12:43] VITALS: BP 92/55
[2018-01-09] MEDS ORDERED: MIRALAX17 GM PO (13:24)
== END 2018-01-09 14:28 | disposition home or self-care (01) ==
LOC: EME 10:13
DX: K59.00 Constipation, unspecified (principal); R10.31 Right lower quadrant pain; F32.9 Major depressive disorder, single episode, unspecified; Z90.710 Acquired absence of both cervix and uterus; Z87.01 Personal history of pneumonia (recurrent); Z88.5 Allergy status to narcotic agent
CPT/HCPCS: 74176; 80053; 81003; 84702; 85027; 99281; 99285; J1885; J2405; J3010; J7040

== ENCOUNTER 2018-01-13 15:09 | Inpatient (IN) | payer BC ==
[~2018-01-13] VITALS: Ht 157.5 cm; Wt 102.1 kg
[~2018-01-13 15:09] MED LIST changes: +MIRALAX17 GM PO; +PERCOCET 10/1 TABLET PO
[2018-01-13 15:39] LABS: BASOPHIL (%) 0.7 % (0-1); BASOPHIL COUNT 0.1 K/uL (0-0.1); EOSINOPHIL (%) 3.6 % (0-5); EOSINOPHIL COUNT 0.3 K/uL (0-0.3); HEMATOCRIT 31.3 % (36.0-46.0); HEMOGLOBIN 9.7 G/DL (11.9-15.5); IMMATURE GRANULOCYTE (%) 0.4 % (0.0-0.7); LYMPHOCYTE COUNT 1.2 K/uL (1.0-2.8); MCH 25.9 PG (29.0-34.0); MCV 83.7 FL (83-99); MONOCYTE (%) 7.5 % (3-12); MONOCYTE COUNT 0.5 K/uL (0-0.8); NEUTROPHIL (%) 69.8 % (45-76); NEUTROPHIL COUNT 4.8 K/uL (1.8-6.4); PLATELET COUNT 272 K/uL (156-360); RBC DIS.WIDTH-CV 15.3 % (11.8-14.6); RBC DIS.WIDTH-SD 46.7 % (39-53); RED BLOOD COUNT 3.74 M/uL (3.80-5.20); WHITE BLOOD COUNT 6.9 K/uL (4.1-10.2)
[2018-01-13 15:50] LABS: ALBUMIN 3.5 g/dL (3.2-4.8); CHLORIDE 105 mEq/L (99-109); POTASSIUM 3.9 mEq/L (3.7-5.4); SODIUM 136 mEq/L (136-147)
[2018-01-13 15:52] LABS: GLUCOSE 113 mg/dL (70-99); TOTAL PROTEIN 7.5 g/dL (6.4-8.3)
[2018-01-13 15:56] LABS: CREATININE 1.1 mg/dL (0.6-1.3); GFR ESTIMATE (CALCULATED) 56 mL/min/
[2018-01-13 15:57] LABS: AST (GOT) 21 IU/L (2-34); UREA NITROGEN (BUN) 10 mg/dL (9-23)
[2018-01-13 15:59] LABS: ALT (GPT) 8 IU/L (3-49); LIPASE 2 U/L (1.0-51.0)
[2018-01-13 16:05] LABS: QUANTITATIVE HCG < 4.0 MIU/ML
[2018-01-13 16:10] LABS: ALKALINE PHOSPHATASE 120 IU/L (3-129); TOTAL BILIRUBIN 0.4 mg/dL (0.0-1.0)
[2018-01-13] MEDS ORDERED: TOPIRAMATE25 MG PO (16:23)
[2018-01-13] MEDS ORDERED: ESZOPICLONE3 MG PO (16:25)
[2018-01-13] MEDS ORDERED: CLONAZEPAM0.5 MG PO (16:26)
[2018-01-13] MEDS ORDERED: ONDANSETRON HCL8 MG PO (16:27)
[2018-01-13] MEDS ORDERED: LOPRESSOR25 MG PO (16:28)
[2018-01-13 16:33] LABS: APPEARANCE CLEAR ((CLEAR)); BILIRUBIN NEGATIVE; BLOOD SMALL; COLOR YELLOW ((YELLOW)); GLUCOSE (STRIP) NEGATIVE; KETONES NEGATIVE; LEUKOCYTES NEGATIVE; NITRITE NEGATIVE; PROTEIN (STRIP) NEGATIVE
[2018-01-13 16:40] LABS: BACTERIA NONE SEEN /HPF; EPITHELIAL CELLS 1+ /HPF; MUCUS NONE SEEN /LPF; RED BLOOD CELLS 0-5 /HPF (0-5); WHITE BLOOD CELLS 0-5 /HPF (0-5)
[2018-01-13 17:22] LABS: SPECIFIC GRAVITY > 1.060 (1.000-1.030)
[2018-01-13 18:02] VITALS: BP 128/62
[2018-01-13 19:12] VITALS: BP 118/68
[2018-01-13 21:42] VITALS: BP 111/73
[2018-01-13 23:55] VITALS: BP 124/58
[2018-01-14 03:43] VITALS: BP 114/55
[2018-01-14 06:58] LABS: HEMATOCRIT 30.2 % (36.0-46.0); HEMOGLOBIN 9.2 G/DL (11.9-15.5); MCH 25.6 PG (29.0-34.0); MCHC 30.5 G/DL (30.0-36.0); MCV 83.9 FL (83-99); PLATELET COUNT 233 K/uL (156-360); RBC DIS.WIDTH-CV 15.4 % (11.8-14.6); RBC DIS.WIDTH-SD 47.6 % (39-53); WHITE BLOOD COUNT 5.6 K/uL (4.1-10.2)
[2018-01-14 07:21] LABS: CHLORIDE 110 MEQ/L (99-109); CREATININE 0.9 MG/DL (0.6-1.3); GFR ESTIMATE (CALCULATED) > 59 mL/min/; GLUCOSE 87 mg/dL (70-99); POTASSIUM 3.9 MEQ/L (3.7-5.4); SODIUM 139 MEQ/L (136-147); UREA NITROGEN (BUN) 9 mg/dL (9-23)
[2018-01-14 07:55] LABS: INTER. NORMALIZED RATIO 1.2
[2018-01-14 07:57] LABS: PTT 29.5 SEC (25-37)
[2018-01-14 08:00] VITALS: BP 155/85
[2018-01-14 12:38] VITALS: BP 125/62
[2018-01-14 16:59] VITALS: BP 139/88
[2018-01-14 19:08] VITALS: BP 130/58
[2018-01-14 23:50] VITALS: BP 124/61
[2018-01-15 04:06] VITALS: BP 139/79
[2018-01-15 06:57] LABS: BASOPHIL (%) 0.9 % (0-1); EOSINOPHIL (%) 3.1 % (0-5); EOSINOPHIL COUNT 0.1 K/uL (0-0.3); HEMATOCRIT 29.6 % (36.0-46.0); IMMATURE GRANULOCYTE (%) 1.1 % (0.0-0.7); LYMPHOCYTE (%) 24.7 % (15-42); LYMPHOCYTE COUNT 1.1 K/uL (1.0-2.8); MCH 25.6 PG (29.0-34.0); MCHC 30.4 G/DL (30.0-36.0); MCV 84.3 FL (83-99); MONOCYTE (%) 5.9 % (3-12); MONOCYTE COUNT 0.3 K/uL (0-0.8); NEUTROPHIL (%) 64.3 % (45-76); NEUTROPHIL COUNT 2.9 K/uL (1.8-6.4); PLATELET COUNT 241 K/uL (156-360); RBC DIS.WIDTH-CV 15.5 % (11.8-14.6); RBC DIS.WIDTH-SD 47.4 % (39-53); RED BLOOD COUNT 3.51 M/uL (3.80-5.20); WHITE BLOOD COUNT 4.6 K/uL (4.1-10.2)
[2018-01-15 07:04] VITALS: BP 138/74
[2018-01-15 07:19] LABS: CHLORIDE 113 MEQ/L (99-109); CREATININE 0.8 MG/DL (0.6-1.3); GFR ESTIMATE (CALCULATED) > 59 mL/min/; GLUCOSE 88 mg/dL (70-99); POTASSIUM 3.7 MEQ/L (3.7-5.4); SODIUM 141 MEQ/L (136-147); UREA NITROGEN (BUN) 9 mg/dL (9-23)
[2018-01-15] MEDS ORDERED: PERCOCET 5/31 TABLET PO (12:12)
[2018-01-15] MEDS ORDERED: AUGMENTIN875 MG PO (12:12)
[2018-01-15] MEDS ORDERED: FLAGYL500 MG PO (12:12)
== END 2018-01-15 13:17 | disposition home or self-care (01) | DRG 372 ==
LOC: EME 15:09 → EDOF 16:21 → 2EASTP 16:21 → ENRESERV 16:23 → 2EASTP 17:51
PROVIDERS: Physician Assistant; Radiology Diagnostic Radiology; Surgery
PROC: 0W9G3ZZ Drainage of Peritoneal Cavity, Percutaneous Approach (ICD-10-PCS; principal; 2018-01-14)
DX: K35.3 Acute appendicitis with localized peritonitis (principal); E66.9 Obesity, unspecified; Z68.41 Body mass index [BMI] 40.0-44.9, adult; I10 Essential (primary) hypertension; K21.9 Gastro-esophageal reflux disease without esophagitis; G43.909 Migraine, unspecified, not intractable, without status migrainosus; D64.9 Anemia, unspecified; F32.9 Major depressive disorder, single episode, unspecified; F41.9 Anxiety disorder, unspecified; Z90.710 Acquired absence of both cervix and uterus; Z87.01 Personal history of pneumonia (recurrent)
CPT/HCPCS: 36415; 49406; 80048; 80053; 81003; 83690; 84702; 85025; 85025 91; 85027; 85610; 85730; 87070; 87075; 87076; 87077; 87186; 87205; 99281; 99285; J1170; J1644; J2405; J2543; J3010; J7030; J7050; J7120; S0028; S0030; S0074

== ENCOUNTER 2018-01-28 05:47 | Day surgery (SDC) | payer BC ==
[~2018-01-28] VITALS: Ht 157.5 cm; Wt 97.1 kg
[~2018-01-28 05:47] MED LIST changes: +CLONAZEPAM0.5 MG PO; +ESZOPICLONE3 MG PO; +FLAGYL500 MG PO; +ONDANSETRON HCL8 MG PO; +PERCOCET 5/31 TABLET PO; +TOPIRAMATE25 MG PO
[2018-01-28 06:54] VITALS: BP 142/90
[2018-01-28 07:40] LABS: INTER. NORMALIZED RATIO 1.1
[2018-01-28] MEDS ORDERED: COLACE100 MG PO (09:14)
[2018-01-28] MEDS ORDERED: PERCOCET 5/31 TABLET PO (09:14)
[2018-01-28] MEDS ORDERED: ONDANSETRON HCL8 MG PO (09:14)
[2018-01-28 10:15] VITALS: BP 155/87
[2018-01-28 11:23] VITALS: BP 186/80
== END 2018-01-28 11:30 | disposition home or self-care (01) ==
LOC: SDC 05:47
PROVIDERS: Surgery
PROC: 0DTJ4ZZ Resection of Appendix, Percutaneous Endoscopic Approach (ICD-10-PCS; principal; 2018-01-28)
DX: K35.80 Unspecified acute appendicitis (principal); I10 Essential (primary) hypertension; E78.5 Hyperlipidemia, unspecified; K21.9 Gastro-esophageal reflux disease without esophagitis; E66.9 Obesity, unspecified; Z68.39 Body mass index [BMI] 39.0-39.9, adult; Z88.1 Allergy status to other antibiotic agents
CPT/HCPCS: 71046; 85610; 88304; J0330; J0690; J1100; J1170; J1885; J2250; J2405

== ENCOUNTER 2018-04-05 12:09 | Emergency (ER) | payer BC ==
[~2018-04-05] VITALS: Ht 157.5 cm; Wt 96.7 kg
[~2018-04-05 12:09] MED LIST changes: +COLACE100 MG PO
[2018-04-05 13:12] LABS: APPEARANCE SL.HAZY ((CLEAR)); BILIRUBIN NEGATIVE; BLOOD NEGATIVE; COLOR YELLOW ((YELLOW)); GLUCOSE (STRIP) NEGATIVE; KETONES NEGATIVE; LEUKOCYTES NEGATIVE; NITRITE NEGATIVE; PROTEIN (STRIP) 30; SPECIFIC GRAVITY 1.028 (1.000-1.030); UROBILINOGEN 0.2 MG/DL (0.2-1.0)
[2018-04-05 13:12] LABS: HEMATOCRIT 37.9 % (36.0-46.0); HEMOGLOBIN 11.8 G/DL (11.9-15.5); MCH 27.3 PG (29.0-34.0); MCHC 31.1 G/DL (30.0-36.0); MCV 87.5 FL (83-99); PLATELET COUNT 270 K/uL (156-360); RBC DIS.WIDTH-CV 16.1 % (11.8-14.6); RBC DIS.WIDTH-SD 52.1 % (39-53); RED BLOOD COUNT 4.33 M/uL (3.80-5.20); WHITE BLOOD COUNT 5.6 K/uL (4.1-10.2)
[2018-04-05 13:16] LABS: BACTERIA 1+ /HPF; EPITHELIAL CELLS 4+ /HPF; MUCUS TRACE /LPF; RED BLOOD CELLS 0-5 /HPF (0-5); UCUL ADDED? NO; WHITE BLOOD CELLS 0-5 /HPF (0-5)
[2018-04-05 13:21] LABS: ALBUMIN 3.9 g/dL (3.2-4.8); CHLORIDE 110 mEq/L (99-109); SODIUM 141 mEq/L (136-147)
[2018-04-05 13:23] LABS: GLUCOSE 106 mg/dL (70-99); TOTAL PROTEIN 7.3 g/dL (6.4-8.3)
[2018-04-05 13:25] LABS: TOTAL BILIRUBIN 0.2 mg/dL (0.0-1.0)
[2018-04-05 13:27] LABS: ALKALINE PHOSPHATASE 118 IU/L (3-129); GFR ESTIMATE (CALCULATED) > 59 mL/min/
[2018-04-05 13:28] LABS: UREA NITROGEN (BUN) 15 mg/dL (9-23)
[2018-04-05 13:29] LABS: AST (GOT) 21 IU/L (2-34)
[2018-04-05 13:30] LABS: ALT (GPT) 23 IU/L (3-49)
[2018-04-05 13:57] LABS: AMYLASE 33 IU/L (1-118)
[2018-04-05 14:05] LABS: LIPASE 5 U/L (1.0-51.0)
[2018-04-05] MEDS ORDERED: ZOFRAN4 MG PO (15:58)
[2018-04-05] MEDS ORDERED: PERCOCET 5/31 TABLET PO (15:58)
[2018-04-05 16:20] VITALS: BP 134/93
[2018-04-05] MEDS ORDERED: ZOFRAN ODT4 MG PO (16:21)
== END 2018-04-05 16:26 | disposition home or self-care (01) ==
LOC: EME 12:09
DX: R10.11 Right upper quadrant pain (principal); R11.0 Nausea; K21.9 Gastro-esophageal reflux disease without esophagitis; Z88.5 Allergy status to narcotic agent; Z88.1 Allergy status to other antibiotic agents
CPT/HCPCS: 74177; 80053; 81003; 82150; 83605; 83690; 85027; 87040; 99281; 99285; J2405; J3010; J7030